=== PATIENT | male | born 1990 | race Caucasian/White ===

== ENCOUNTER 2016-11-22 14:50 | Emergency (ER) | payer OTHER ==
[2016-11-22 15:01] VITALS: O2SAT 99
--- NOTE | 2016-11-22 15:23 | ERPHSYRPT ---
- History of Present Illness Time Seen by Provider: 11/22/16 15:12 Source: patient Exam Limitations: no limitations Patient Subjective Stated Complaint: lower back pain for two days that radiates down right leg. numbness to right leg. hx chronic back pain. Triage Nursing Assessment: ambulated to room per self. skin w/d, color normal. ambulates without difficulty. Physician History: The patient is a 26-year-old male with a history of scoliosis and Zheng rods comes in complaining of increased low back pain on the left with pain shooting down his right leg at times. He has no problems with defecation or urination. He takes hydrocodone 10 mg 4 times a day for his chronic back pain. The hydrocodone is not working. He is locked into a pain clinic. 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 Timing/Duration: day(s) (2) Method of Injury: unknown Quality: aching Back Pain Location: lumbar spine, paraspinous muscles (left) Back Pain Radiation: upper legs (right) Severity of Pain-Max: moderate Severity of Pain-Current: moderate Modifying Factors: Improves With: pain medication Associated Symptoms: denies symptoms Previous symptoms: same symptoms as today, other (chronic) Allergies/Adverse Reactions: No Known Drug Allergies Allergy (Verified 11/22/16 14:58) Home Medications: Hydrocodone/APAP 10/325 mg [[place] 10/325 MG Tablet] 1 tab PO Q4-6HPRN PRN 10/23/16 [History] Hx Tetanus, Diphtheria Vaccination/Date Given: Yes (2015) Hx Influenza Vaccination/Date Given: Yes (2014) Hx Pneumococcal Vaccination/Date Given: No Immunizations Up to Date: Yes - Review of Systems Constitutional: No Fever, No Chills Eyes: No Symptoms Ears, Nose, & Throat: No Symptoms Respiratory: No Cough, No Dyspnea Cardiac: No Chest Pain, No Edema, No Syncope Abdominal/Gastrointestinal: No Abdominal Pain, No Nausea, No Vomiting, No Diarrhea Genitourinary Symptoms: No Dysuria Musculoskeletal: Back Pain Skin: No Rash Neurological: No Dizziness, No Focal Weakness, No Sensory Changes Psychological: No Symptoms Endocrine: No Symptoms Hematologic/Lymphatic: No Symptoms Immunological/Allergic: No Symptoms All Other Systems: Reviewed and Negative - Past Medical History Pertinent Past Medical History: Yes Neurological History: Other ENT History: No Pertinent History Cardiac History: No Pertinent History Respiratory History: No Pertinent History Endocrine Medical History: No Pertinent History Musculoskeletal History: Other GI Medical History: No Pertinent History History: No Pertinent History Psycho-Social History: No Pertinent History Male Reproductive Disorders: No Pertinent History Other Medical History: SCOLIOSIS AND NEUROFIBROMATOSIS. CHRONIC BACK PROBLEMS - Past Surgical History Past Surgical History: Yes Neuro Surgical History: No Pertinent History Cardiac: No Pertinent History Respiratory: No Pertinent History Gastrointestinal: No Pertinent History Genitourinary: No Pertinent History Musculoskeletal: Orthopedic Surgery Male Surgical History: No Pertinent History Other Surgical History: tonsillectomy - finger repair and back surgery- adenoidectomy - Social History Smoking Status: Never smoker Exposure to second hand smoke: Yes Drug Use: none Patient Lives Alone: No - Nursing Vital Signs Temperature: 98.5 F Temperature Source: Oral Pulse Rate: 107 Respiratory Rate: 16 Pain Intensity: 4 - Physical Exam General Appearance: no apparent distress, alert Eye Exam: PERRL/EOMI, eyes nml inspection Ears, Nose, Throat Exam: normal ENT inspection Neck Exam: normal inspection, non-tender, supple, full range of motion, No meningismus, No midline tenderness Respiratory Exam: normal breath sounds, lungs clear, No respiratory distress Cardiovascular Exam: regular rate/rhythm, normal heart sounds Gastrointestinal Exam: soft, No tenderness, No mass Rectal Exam: not done Back Exam: decreased range of motion, muscle spasm (left paraspinous) Extremity Exam: normal inspection, normal range of motion, No calf tenderness, No pedal edema Neurologic Exam: alert, oriented x 3, cooperative, 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 You were given an injection of Toradol 60 mg and Decadron 10 mg IM while in the ER. You were given a prescription for Flexeril 10 mg every 8 hours as needed. Follow-up as needed. Prescriptions: Cyclobenzaprine HCl [Flexeril] 10 mg PO Q8H PRN PRN #10 tablet PRN Reason: Pain
[2016-11-22] MEDS ORDERED: DECADRON 10MG INJ. IM ONE (15:30)
[2016-11-22] MEDS ORDERED: TORAdol 30 mg Injection IM ONE (15:30)
[2016-11-22] MEDS ORDERED: TORAdol 30 mg Injection ONE (15:34)
[2016-11-22] MEDS ORDERED: DECADRON 10MG INJ. ONE (15:34)
[2016-11-22 15:55] VITALS: BP 136/78; PULSE 88
== END 2016-11-22 15:55 | disposition home or self-care (01) ==
LOC: ED 14:50
DX: M54.5 Low back pain (principal); M79.604 Pain in right leg; M41.9 Scoliosis, unspecified; Q85.00 Neurofibromatosis, unspecified
CPT/HCPCS: 96372; 99282; J1100; J1885

== ENCOUNTER 2017-02-01 18:33 | Emergency (ER) | payer OTHER ==
--- NOTE | 2017-02-01 18:44 | ERPHSYRPT ---
- History of Present Illness Time Seen by Provider: 02/01/17 18:39 Source: patient Exam Limitations: no limitations Physician History: The patient is a 26-year-old male who missed a step and twisted his right ankle about 30 minutes ago. He complains of pain. There is some swelling. His past medical history is significant for neurofibromatosis. Method of Injury: twisted Occurred: just prior to arrival Quality: aching Severity of Pain-Max: mild Severity of Pain-Current: mild Lower Extremities Pain: ankle: right Modifying Factors: Improves With: nothing Associated Symptoms: none Allergies/Adverse Reactions: No Known Drug Allergies Allergy (Verified 02/01/17 18:42) Home Medications: No Reportable Medications [No Reported Medications] 02/01/17 [History] Hx Tetanus, Diphtheria Vaccination/Date Given: Yes (2015) Hx Influenza Vaccination/Date Given: Yes (2014) Hx Pneumococcal Vaccination/Date Given: No - Review of Systems Constitutional: No Fever, No Chills Eyes: No Symptoms Ears, Nose, & Throat: No Symptoms Respiratory: No Cough, No Dyspnea Cardiac: No Chest Pain, No Edema, No Syncope Abdominal/Gastrointestinal: No Abdominal Pain, No Nausea, No Vomiting, No Diarrhea Genitourinary Symptoms: No Dysuria Musculoskeletal: Injury, Joint Pain Skin: No Rash Neurological: No Dizziness, No Focal Weakness, No Sensory Changes Psychological: No Symptoms Endocrine: No Symptoms Hematologic/Lymphatic: No Symptoms Immunological/Allergic: No Symptoms All Other Systems: Reviewed and Negative - Past Medical History Pertinent Past Medical History: Yes Neurological History: Other ENT History: No Pertinent History Cardiac History: No Pertinent History Respiratory History: No Pertinent History Endocrine Medical History: No Pertinent History Musculoskeletal History: Other GI Medical History: No Pertinent History History: No Pertinent History Psycho-Social History: No Pertinent History Male Reproductive Disorders: No Pertinent History Other Medical History: SCOLIOSIS AND NEUROFIBROMATOSIS. CHRONIC BACK PROBLEMS - Past Surgical History Past Surgical History: Yes Neuro Surgical History: No Pertinent History Cardiac: No Pertinent History Respiratory: No Pertinent History Gastrointestinal: No Pertinent History Genitourinary: No Pertinent History Musculoskeletal: Orthopedic Surgery Male Surgical History: No Pertinent History Other Surgical History: tonsillectomy - finger repair and back surgery- adenoidectomy - Social History Smoking Status: Never smoker Exposure to second hand smoke: Yes Drug Use: none Patient Lives Alone: No - Nursing Vital Signs Nursing Vital Signs: Initial Vital Signs Temperature 97.5 F Temperature Source Oral Pulse Rate 105 Respiratory Rate 16 Blood Pressure [Right Arm] 151/81 Pain Intensity 5 - Physical Exam General Appearance: alert Eyes, Ears, Nose, Throat Exam: moist mucous membranes Neck Exam: non-tender, supple Cardiovascular/Respiratory Exam: chest non-tender, normal breath sounds, regular rate/rhythm, no respiratory distress Gastrointestinal/Abdominal Exam: non-tender, guarding Back Exam: normal inspection, No vertebral tenderness Hips Exam: bilateral: non-tender Legs Exam: bilateral leg: non-tender Knees Exam: bilateral knee: non-tender Ankle Exam: right ankle: pain, soft tissue tenderness, swelling, left ankle: non -tender, normal inspection Neuro/Tendon Exam: normal sensation, normal motor functions Mental Status Exam: alert, oriented x 3, cooperative Skin Exam: normal color, warm, dry SpO2 Interpretation: normal - Radiology Exams Right Ankle X-ray Interpretation: Interpreted by me, Negative Ordered Tests: Active Orders 24 hr Category Date Time Status ANKLE (3 VIEWS) Stat Exams 02/01/17 18:42 Taken - Progress Progress: unchanged Counseled pt/family regarding: rad results - Departure Time of Disposition: 19:17 Departure Disposition: Home Clinical Impression: Mild sprain of right ankle Condition: Stable Critical Care Time: No Additional Instructions: You have a mild sprain of your right ankle. You were given toradol 60 mg IM in the ER. Take tylenol and ibuprofen as needed. Apply ice as needed.
[2017-02-01] MEDS ORDERED: TORAdol 30 mg Injection IM ONE (19:16)
[2017-02-01] MEDS ORDERED: TORAdol 30 mg Injection ONE (19:18)
[2017-02-01 19:39] VITALS: BP 126/70; PULSE 100; O2SAT 99
--- NOTE | 2017-02-02 17:27 | XRAY ---
Exam: 3 views of the right ankle from 02/01/2017. Comparison: 3 views of the left ankle from 10/25/2010. Indication: Right ankle pain after falling downstairs. Findings: AP, oblique, and lateral images of the right ankle were obtained. I see no acute fracture or dislocation. The right ankle mortise appears unremarkable. There is an incompletely seen oval-shaped soft tissue density overlying the anterior lateral aspect of the right ankle on the AP and lateral radiographs in a superficial location. On the lateral radiograph this is centered about 2 cm proximal to the ankle mortise anteriorly and measures roughly 1.5 cm in greatest diameter. Correlate clinically regarding soft tissue injury in this projection or a skin lesion or a subcutaneous nodule. No other bone or joint abnormality is seen. Impression: 1. No acute fracture or dislocation of the right ankle is seen. 2. Approximately 1.5 cm in diameter, oval-shaped, superficial soft tissue density anterior laterally within the distal right lower leg about 2 cm proximal to the right ankle joint level. See above. Correlate clinically.
== END 2017-02-01 19:39 | disposition home or self-care (01) ==
LOC: ED 18:33
DX: S93.401A Sprain of unspecified ligament of right ankle, initial encounter (principal); W10.9XXA Fall (on) (from) unspecified stairs and steps, initial encounter; X50.0XXA Overexertion from strenuous movement or load, initial encounter; M25.571 Pain in right ankle and joints of right foot
CPT/HCPCS: 73610; 96372; 99284; J1885

== ENCOUNTER 2017-05-31 13:58 | Emergency (ER) | payer OTHER ==
[2017-05-31 14:16] VITALS: BP 135/75
--- NOTE | 2017-05-31 14:34 | ERPHSYRPT ---
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 Triage Nursing Assessment: pt pink, warm, dry. left pinky toe nail bed has laceration. mild swelling noted to toe. Physician History: The patient is a 27-year-old male with his complaining that he was running barefoot, playing with his child, and slipped on the floor, hitting the wall with his left little toe. He was in severe pain. He vomited. This happened 20 minutes ago. He then took Tylenol and ibuprofen. There is some blood at the toenail. His past medical history is unremarkable. Method of Injury: fell Occurred: just prior to arrival Quality: constant, sharpness Severity of Pain-Max: moderate Severity of Pain-Current: moderate Lower Extremities Pain: 5th toe: left Modifying Factors: Improves With: pain medication Associated Symptoms: other (vomited) Allergies/Adverse Reactions: No Known Drug Allergies Allergy (Verified 05/31/17 14:16) Home Medications: No Reportable Medications [No Reported Medications] 02/01/17 [History] Hx Tetanus, Diphtheria Vaccination/Date Given: Yes (up to date) Hx Influenza Vaccination/Date Given: No Hx Pneumococcal Vaccination/Date Given: No Immunizations Up to Date: Yes - Review of Systems Constitutional: No Fever, No Chills Eyes: No Symptoms Ears, Nose, & Throat: No Symptoms Respiratory: No Cough, No Dyspnea Cardiac: No Chest Pain, No Edema, No Syncope Abdominal/Gastrointestinal: Vomiting, No Abdominal Pain, No Nausea, No Diarrhea Genitourinary Symptoms: No Dysuria Musculoskeletal: Fall, Injury Skin: No Rash Neurological: No Dizziness, No Focal Weakness, No Sensory Changes Psychological: No Symptoms Endocrine: No Symptoms Hematologic/Lymphatic: No Symptoms Immunological/Allergic: No Symptoms All Other Systems: Reviewed and Negative - Past Medical History Pertinent Past Medical History: Yes Neurological History: Other ENT History: No Pertinent History Cardiac History: No Pertinent History Respiratory History: No Pertinent History Endocrine Medical History: No Pertinent History Musculoskeletal History: Other GI Medical History: No Pertinent History History: No Pertinent History Psycho-Social History: No Pertinent History Male Reproductive Disorders: No Pertinent History Other Medical History: SCOLIOSIS AND NEUROFIBROMATOSIS. CHRONIC BACK PROBLEMS - Past Surgical History Past Surgical History: Yes Neuro Surgical History: No Pertinent History Cardiac: No Pertinent History Respiratory: No Pertinent History Gastrointestinal: No Pertinent History Genitourinary: No Pertinent History Musculoskeletal: Orthopedic Surgery Male Surgical History: No Pertinent History Other Surgical History: tonsillectomy - finger repair and back surgery- adenoidectomy - Social History Smoking Status: Never smoker Exposure to second hand smoke: No Drug Use: none Patient Lives Alone: No - Nursing Vital Signs Nursing Vital Signs: Initial Vital Signs Temperature 98.0 F 05/31/17 14:11 Pulse Rate 72 05/31/17 14:11 Respiratory Rate 18 05/31/17 14:11 Blood Pressure 135/75 05/31/17 14:11 O2 Sat by Pulse Oximetry 99 05/31/17 14:11 Pain Scale Pain Intensity 6 - Physical Exam General Appearance: alert Eyes, Ears, Nose, Throat Exam: moist mucous membranes Neck Exam: non-tender, supple Cardiovascular/Respiratory Exam: chest non-tender, normal breath sounds, regular rate/rhythm, no respiratory distress Gastrointestinal/Abdominal Exam: non-tender, guarding Back Exam: normal inspection, No vertebral tenderness Hips Exam: bilateral: non-tender, normal inspection Legs Exam: bilateral leg: non-tender, normal inspection Knees Exam: bilateral knee: non-tender, normal inspection Ankle Exam: bilateral ankle: non-tender, normal inspection Foot Exam: left foot: limited range of motion (5th digit), nail injury, pain, soft tissue tenderness Neuro/Tendon Exam: normal sensation, normal motor functions Mental Status Exam: alert, oriented x 3, cooperative Skin Exam: normal color, warm, dry, ecchymosis (mild at base of left 5th toe) SpO2 Interpretation: normal SpO2: 99 Oxygen Delivery: Room Air - Radiology Exams Other X-ray Interpretation: Reviewed by me, Teleradiologist Report, Negative, No Fracture (No fracture of left 5th toe per Dr Jaimes.) Ordered Tests: Active Orders 24 hr Category Date Time Status TOE(S) (MIN 2 VIEWS) Stat Exams 05/31/17 Completed - Progress Progress: improved Counseled pt/family regarding: rad results - Departure Time of Disposition: 15:06 Departure Disposition: Home Clinical Impression: Contusion of left great toe with damage to nail Condition: Stable Critical Care Time: No Additional Instructions: You have a contusion to your left little toe. You do not have any broken bones. Apply ice as needed. Take Tylenol and ibuprofen as needed. Follow-up as needed.
--- NOTE | 2017-05-31 15:03 | XRAY ---
Indication: Pain and bleeding following trauma. Comparison: None AP/lateral left 5th toe obtained. No bony, articular, or soft tissue abnormalities.
[2017-05-31 15:29] VITALS: PULSE 70; O2SAT 97
== END 2017-05-31 15:20 | disposition home or self-care (01) ==
LOC: ED 13:58
DX: S90.222A Contusion of left lesser toe(s) with damage to nail, initial encounter (principal); W22.01XA Walked into wall, initial encounter; Y93.02 Activity, running; Y92.018 Other place in single-family (private) house as the place of occurrence of the external cause
CPT/HCPCS: 73660; 99282; 99283

== ENCOUNTER 2017-08-30 09:07 | Emergency (ER) | payer BC, OTHER ==
[2017-08-30] MEDS ORDERED: Augmentin 875-125 Tablet PO ONE (09:21)
[2017-08-30] MEDS ORDERED: NORCO 5/325 MG PO ONE (09:21)
[2017-08-30] MEDS ORDERED: Adacel Vial IM ONE ×2 (09:24→09:40)
[2017-08-30 09:26] VITALS: BP 154/88
--- NOTE | 2017-08-30 09:35 | ERPHSYRPT ---
- History of Present Illness Time Seen by Provider: 08/30/17 09:16 Source: patient Patient Subjective Stated Complaint: PT REPORTS STUBBING HIS RIGHT GREAT TOE ON HIS COUCH APPROX 4 DAYS AGO, REPORTS HE HAS SHARP PAIN AND SWELLING TO THE R GREAT TOE AND IS UNABLE TO GET HIS SHOE ON TO GO TO WORK. Triage Nursing Assessment: PT IS AOX3, PUPILS PERRL, RESPS EASY AND NON LABORED LUNG SOUNDS ARE CLEAR THROUGHOUT ALL T[place]LIN[place], RADIAL PULSES ARE STRONG AND EQUAL. SKIN IS PINK WARM AND DRY. PT IS AFEBRILE. REDNESS AND SWELLING NOTED TO THE R GREAT TOE. FOOT IS WARM TO TOUCH, CAP REFILL <3 SECONDS. NEUROFIBROMA PRESENT ON THE RIGHT DORSAL FOOT. PEDAL PULSES STRONG AND EQUAL BILAT. Physician History: CC: right great toe injury Hx: 27 y/o patient with no local doctor. Recently obtained insurance from [employer]. He has hx of neurofibromatosis. He stubbed the right great toe on the couch a few days ago. It is now red, painful, swollen, with some drainage at the edges of the nail. No fever or chills. Unsure last tetanus vaccine. No allergies. Pain moderate. Lower Extremities Pain: 1st toe: right Allergies/Adverse Reactions: No Known Drug Allergies Allergy (Verified 08/30/17 09:26) Hx Tetanus, Diphtheria Vaccination/Date Given: No Hx Influenza Vaccination/Date Given: No Hx Pneumococcal Vaccination/Date Given: No Immunizations Up to Date: Yes - Review of Systems Constitutional: No Fever, No Chills Musculoskeletal: Joint Pain (right great toe) - Past Medical History Pertinent Past Medical History: Yes Neurological History: Other ENT History: No Pertinent History Cardiac History: No Pertinent History Respiratory History: No Pertinent History Endocrine Medical History: No Pertinent History Musculoskeletal History: Other GI Medical History: No Pertinent History History: No Pertinent History Psycho-Social History: No Pertinent History Male Reproductive Disorders: No Pertinent History Other Medical History: SCOLIOSIS AND NEUROFIBROMATOSIS. CHRONIC BACK PROBLEMS - Past Surgical History Past Surgical History: Yes Neuro Surgical History: No Pertinent History Cardiac: No Pertinent History Respiratory: No Pertinent History Gastrointestinal: No Pertinent History Genitourinary: No Pertinent History Musculoskeletal: Orthopedic Surgery Male Surgical History: No Pertinent History Other Surgical History: tonsillectomy - finger repair and back surgery- adenoidectomy - Social History Smoking Status: Never smoker Exposure to second hand smoke: No Drug Use: none Patient Lives Alone: No - Nursing Vital Signs Nursing Vital Signs: Initial Vital Signs Temperature 97.8 F 08/30/17 09:18 Pulse Rate 103 H 08/30/17 09:18 Respiratory Rate 18 08/30/17 09:18 Blood Pressure 154/88 08/30/17 09:18 O2 Sat by Pulse Oximetry 99 08/30/17 09:18 Pain Scale Pain Intensity 6 - Physical Exam General Appearance: alert Eyes, Ears, Nose, Throat Exam: moist mucous membranes Neck Exam: normal inspection, non-tender, supple Cardiovascular/Respiratory Exam: normal breath sounds, regular rate/rhythm Gastrointestinal/Abdominal Exam: non-tender, soft Back Exam: normal inspection Neuro/Tendon Exam: normal sensation, normal motor functions Mental Status Exam: alert, oriented x 3, cooperative Skin Exam: warm, dry, other (multiple cafe au lait spots, neurogfibromas) SpO2 Interpretation: normal SpO2: 99 Oxygen Delivery: Room Air Comments: right great toe has granulation tissuse at the nail margins distally bilateral nail margins. There is swelling to the great toe and some tenderness and some mild drainage. - Course Nursing assessment & vital signs reviewed: Yes - Radiology Exams right foot X-ray Interpretation: Teleradiologist Report (new great toe soft tissue swelling without acute fracture) Ordered Tests: Active Orders 24 hr Category Date Time Status Splint STAT Care 08/30/17 09:21 Active Wound Care STAT Care 08/30/17 09:21 Active FOOT (MINIMUM 3 VIEWS) Stat Exams 08/30/17 09:21 Completed Medication Summary Discontinued Medications Generic Name Dose Route Start Last Admin Trade Name Norma PRN Reason Stop Dose Admin Hydrocodone Bitart/Acetaminophen 1 tab 08/30/17 09:21 08/30/17 09:44 [place] 5/325 Mg PO 08/30/17 09:22 1 tab STAT ONE Administration Hydrocodone Bitart/Acetaminophen Confirm 08/30/17 09:39 [place] 5/325 Mg Administered 08/30/17 09:40 Dose 1 tab .ROUTE .STK-MED ONE Amoxicillin/Clavulanate Potassium 875 mg 08/30/17 09:21 08/30/17 09:44 Augmentin 875-125 Tablet PO 08/30/17 09:22 875 mg STAT ONE Administration Amoxicillin/Clavulanate Potassium Confirm 08/30/17 09:39 Augmentin 875-125 Tablet Administered 08/30/17 09:40 Dose 875 mg .ROUTE .STK-MED ONE Diphtheria/Tetanus/Acell Pertussis 0.5 ml 08/30/17 09:24 08/30/17 09:43 Adacel Vial IM 08/30/17 09:25 0.5 ml .ONCE ONE Administration Diphtheria/Tetanus/Acell Pertussis Confirm 08/30/17 09:40 Adacel Vial Administered 08/30/17 09:41 Dose 0.5 ml IM .STK-MED ONE - Progress Progress Note: 08/30/17 10:12 Pt stable. Appointment made to see Dr Alvarez at [facility] WedSeptember 01 at 5:30PM. Counseled pt/family regarding: diagnosis, need for follow-up, rad results - Departure Time of Disposition: 10:13 Departure Disposition: Home Clinical Impression: Paronychia of great toe of right foot Condition: Stable Critical Care Time: No Referrals: REMEDIOS ALVAREZ [PODIATRY STAFF] - Instructions: Paronychia (DC) Additional Instructions: Darco post op shoe. Elevate foot. Rx augmentin. Rx norco. See Dr Alvarez at [facility] September 01 at 5:30PM. Prescriptions: Hydrocodone Bit/Acetaminophen [[place] 5-325 Tablet] 1 each PO Q6H PRN PRN #15 tablet MDD 4 PRN Reason: Pain Amox Tr/Potass Clav. 875 mg [Augmentin 875-125 Tablet] 875 mg PO BID #20 tablet
[2017-08-30] MEDS ORDERED: NORCO 5/325 MG ONE (09:39)
[2017-08-30] MEDS ORDERED: Augmentin 875-125 Tablet ONE (09:39)
--- NOTE | 2017-08-30 09:43 | XRAY ---
Indication: Great toe pain following injury 3-4 days ago. Comparison: January 02, 2016. 3 nonweightbearing views of the right foot demonstrates new great toe soft tissue swelling without acute fracture, dislocation, or suspicious bony lesions. Stable lateral midfoot soft tissue swelling/prominence. Remaining right foot unremarkable.
[2017-08-30 10:44] VITALS: PULSE 72; O2SAT 98
== END 2017-08-30 10:45 | disposition home or self-care (01) ==
LOC: ED 09:07
DX: L03.031 Cellulitis of right toe (principal)
CPT/HCPCS: 73630; 90471; 90715; 99283; A9270-GY

== ENCOUNTER 2017-11-08 08:17 | Emergency (ER) | payer BC ==
--- NOTE | 2017-11-08 09:17 | ERPHSYRPT ---
- History of Present Illness Time Seen by Provider: 11/08/17 09:02 Source: patient Exam Limitations: clinical condition Patient Subjective Stated Complaint: Dental pain, chipped tooth left upper. Triage Nursing Assessment: Pt presents to the ED with complaints of left upper dental pain after chipping tooth this AM. PT states hx of dental complaints. Pt states tylenol and motrin have been taken for pain. No distress noted. Physician History: PATIENT STATE WHILE EATING LAST NIGHT SUSTAINED LEFT UPPER MOLAR FRACTURED TOOTH ASSOCIATED WITH PAIN. DENIES FEVER OR CHILLS, OR DIFFICULTY SWALLOWING. Timing/Duration: abrupt onset Severity: severe ENT Location: dental Prearrival Treatment: no prearrival treatment Modifying Factors: Improves With: other (CHEWING FOOD) Associated Symptoms: jaw pain Allergies/Adverse Reactions: No Known Drug Allergies Allergy (Verified 08/30/17 09:26) Hx Tetanus, Diphtheria Vaccination/Date Given: Yes Hx Influenza Vaccination/Date Given: Yes Hx Pneumococcal Vaccination/Date Given: No Immunizations Up to Date: Yes - Review of Systems Constitutional: No Fever, No Chills Ears, Nose, & Throat: Mouth Pain Respiratory: No Cough, No Dyspnea Cardiac: No Symptoms, No Chest Pain, No Edema, No Syncope Abdominal/Gastrointestinal: No Abdominal Pain, No Nausea, No Vomiting, No Diarrhea - Past Medical History Pertinent Past Medical History: Yes Neurological History: Other ENT History: No Pertinent History Cardiac History: No Pertinent History Respiratory History: No Pertinent History Endocrine Medical History: No Pertinent History Musculoskeletal History: Other GI Medical History: No Pertinent History History: No Pertinent History Psycho-Social History: No Pertinent History Male Reproductive Disorders: No Pertinent History Other Medical History: SCOLIOSIS AND NEUROFIBROMATOSIS. CHRONIC BACK PROBLEMS - Past Surgical History Past Surgical History: Yes Neuro Surgical History: No Pertinent History Cardiac: No Pertinent History Respiratory: No Pertinent History Gastrointestinal: No Pertinent History Genitourinary: No Pertinent History Musculoskeletal: Orthopedic Surgery Male Surgical History: No Pertinent History Other Surgical History: tonsillectomy - finger repair and back surgery- adenoidectomy - Social History Smoking Status: Never smoker Exposure to second hand smoke: Yes Drug Use: none Patient Lives Alone: No - Nursing Vital Signs Nursing Vital Signs: Initial Vital Signs Temperature 98.6 F 11/08/17 08:51 Pulse Rate 81 11/08/17 08:51 Respiratory Rate 16 11/08/17 08:51 Blood Pressure 139/88 11/08/17 08:51 O2 Sat by Pulse Oximetry 100 11/08/17 08:51 Pain Scale Pain Intensity 5 - Physical Exam General Appearance: no apparent distress, alert Eye Exam: bilateral eye: normal inspection, PERRL Ear Exam: bilateral ear: auricle normal, canal normal Nasal Exam: normal inspection Throat Exam: dental tenderness (WIDESPREAD DENTAL CARIES) Cardiovascular/Respiratory Exam: normal breath sounds, regular rate/rhythm Neurologic Exam: alert, oriented x 3, cooperative SpO2 Interpretation: normal SpO2: 100 Oxygen Delivery: Room Air - Progress Counseled pt/family regarding: diagnosis, need for follow-up - Departure Time of Disposition: 09:25 Departure Disposition: Home Clinical Impression: DENTAL CARIES Condition: Stable Critical Care Time: No Additional Instructions: CALL A DENTIST TODAY TO SCHEDULE APPOINTMENT FOR TREATMENT. ANTIBIOTIC AMOXICILLIN 500MG EVERY 8 HOURS FOR 10 DAYS. TORADOL 10MG EVERY 6 HOURS NEEDED FOR DAY. TYLENOL #3 EVERY 4 HOURS FOR SEVERE PAIN. OBTAIN A PRIMARY CARE PROVIDER FOR TREATMENT. Prescriptions: Codeine Phosphate/APAP #3 [Tylenol #3 Tablet] 1 tab PO Q4H PRN PRN #10 tablet PRN Reason: Pain Ketorolac Tromethamine [Toradol] 10 mg PO Q6H PRN PRN #20 tablet PRN Reason: Pain Amoxicillin 500 mg PO TID #30 capsule
[2017-11-08 09:50] VITALS: BP 134/82; PULSE 88; O2SAT 98
== END 2017-11-08 09:52 | disposition home or self-care (01) ==
LOC: ED 08:17
DX: K02.9 Dental caries, unspecified (principal)
CPT/HCPCS: 99282; 99283

== ENCOUNTER 2018-08-30 20:59 | Emergency (ER) | payer BC, MEDICAID ==
--- NOTE | 2018-08-30 21:28 | ERPHSYRPT ---
- History of Present Illness Time Seen by Provider: 08/30/18 21:27 Source: patient Patient Subjective Stated Complaint: Right knee pain Triage Nursing Assessment: Patient ambulated into ED and transferred self to bed. Patient A+O X 3. Patient skin pink, warm and dry. Patient complains of right knee pain 5/10. Patient states he was walking around 1700 and heard a pop to right knee and has had pain ever since. Patient able to bear weight, but hurts to walk and bend knee. No deformities or bruising noted. Physician History: 28 y/o white male with no prior knee problems or surgeries presentes with pain in right knee. pt was walking on stairs and felt a pop. suddenly had pain. took tylenol and pain persisted so came into ED for further management. Method of Injury: twisted Occurred: just prior to arrival Quality: aching Severity of Pain-Max: mild Severity of Pain-Current: mild Lower Extremities Pain: knee: right Modifying Factors: Improves With: movement Associated Symptoms: popping sensation Allergies/Adverse Reactions: No Known Drug Allergies Allergy (Verified 08/30/18 21:09) Hx Tetanus, Diphtheria Vaccination/Date Given: Yes Hx Influenza Vaccination/Date Given: Yes Hx Pneumococcal Vaccination/Date Given: No Immunizations Up to Date: Yes - Review of Systems Constitutional: No Symptoms Eyes: No Symptoms Ears, Nose, & Throat: No Symptoms Respiratory: No Symptoms Cardiac: No Symptoms Abdominal/Gastrointestinal: No Symptoms Genitourinary Symptoms: No Symptoms Musculoskeletal: Joint Pain (right knee) Skin: No Symptoms Neurological: No Symptoms Psychological: No Symptoms Endocrine: No Symptoms Hematologic/Lymphatic: No Symptoms Immunological/Allergic: No Symptoms All Other Systems: Reviewed and Negative - Past Medical History Pertinent Past Medical History: Yes Neurological History: Other ENT History: No Pertinent History Cardiac History: No Pertinent History Respiratory History: No Pertinent History Endocrine Medical History: No Pertinent History Musculoskeletal History: Other GI Medical History: No Pertinent History History: No Pertinent History Psycho-Social History: No Pertinent History Male Reproductive Disorders: No Pertinent History Other Medical History: SCOLIOSIS AND NEUROFIBROMATOSIS. CHRONIC BACK PROBLEMS - Past Surgical History Past Surgical History: Yes Neuro Surgical History: No Pertinent History Cardiac: No Pertinent History Respiratory: No Pertinent History Gastrointestinal: No Pertinent History Genitourinary: No Pertinent History Musculoskeletal: Orthopedic Surgery Male Surgical History: No Pertinent History Other Surgical History: tonsillectomy - finger repair and back surgery- adenoidectomy - Social History Smoking Status: Never smoker Exposure to second hand smoke: Yes Drug Use: none Patient Lives Alone: No - Nursing Vital Signs Nursing Vital Signs: Initial Vital Signs Temperature 97.9 F 08/30/18 21:10 Pulse Rate 80 08/30/18 21:10 Respiratory Rate 18 08/30/18 21:10 Blood Pressure 123/70 08/30/18 21:10 O2 Sat by Pulse Oximetry 100 08/30/18 21:10 Pain Scale Pain Intensity 5 - Physical Exam General Appearance: no apparent distress, alert, anxiety Eyes, Ears, Nose, Throat Exam: normal ENT inspection Neck Exam: normal inspection, non-tender, supple, full range of motion Cardiovascular/Respiratory Exam: chest non-tender, normal breath sounds, regular rate/rhythm, heart sounds normal Gastrointestinal/Abdominal Exam: non-tender, soft, guarding Back Exam: normal inspection, normal range of motion, No CVA tenderness, No vertebral tenderness Hips Exam: bilateral: non-tender, normal inspection, normal range of motion, no evidence of injury Legs Exam: bilateral leg: non-tender, normal inspection, normal range of motion , no evidence of injury Knees Exam: right knee: non-tender, left knee: bone tenderness, soft tissue tenderness, bilateral knee: normal inspection, normal range of motion, no evidence of injury Ankle Exam: bilateral ankle: non-tender, normal inspection, normal range of motion, no evidence of injury Foot Exam: bilateral foot: non-tender, normal inspection, normal range of motion , no evidence of injury Neuro/Tendon Exam: normal sensation, normal motor functions, normal tendon functions Mental Status Exam: alert, oriented x 3, cooperative Skin Exam: normal color, warm, dry SpO2 Interpretation: normal SpO2: 100 O2 Delivery: Room Air - Course Nursing assessment & vital signs reviewed: Yes Ordered Tests: Active Orders 24 hr Category Date Time Status KNEE (3 VIEWS) Stat Exams 08/30/18 21:28 Taken - Progress Progress: unchanged Progress Note: 08/30/18 22:19 xray right knee- no acute fx or dislocation Counseled pt/family regarding: diagnosis, need for follow-up, rad results - Departure Time of Disposition: 22:20 Departure Disposition: Home Clinical Impression: Right knee pain Condition: Stable Critical Care Time: No Additional Instructions: use tylenol and ibuprofen for pain. ice pack to area 3 times daily for 2 days. follow up with primary doctor for further management
[2018-08-30] MEDS ORDERED: NORCO 5/325 MG PO ONE (22:22)
[2018-08-30] MEDS ORDERED: NORCO 5/325 MG ONE (22:25)
[2018-08-30 22:31] VITALS: BP 115/70; PULSE 83; O2SAT 98
--- NOTE | 2018-08-31 09:04 | XRAY ---
Indication: Pain. No known injury. Comparison: None 3 views of the right knee obtained. No bony, articular, or soft tissue abnormalities.
== END 2018-08-30 22:44 | disposition home or self-care (01) ==
LOC: ED 20:59
DX: M25.561 Pain in right knee (principal); M41.9 Scoliosis, unspecified; Q85.00 Neurofibromatosis, unspecified; X50.1XXA Overexertion from prolonged static or awkward postures, initial encounter
CPT/HCPCS: 73562; 99283; A9270-GY

== ENCOUNTER 2019-01-02 13:17 | Emergency (ER) | payer MEDICAID ==
[2019-01-02] MEDS ORDERED: Norco 10/325 MG Tablet PO ONE (13:58)
[2019-01-02] MEDS ORDERED: Norco 10/325 MG Tablet ONE (14:03)
--- NOTE | 2019-01-02 14:05 | ERPHSYRPT ---
- History of Present Illness Time Seen by Provider: 01/02/19 13:35 Source: patient Exam Limitations: clinical condition Patient Subjective Stated Complaint: Pt stated that he was walking down carpeted stairs and tripped on his shoe strings and fell down about 5 steps hurting his right side of the back of neck, rates pain 6/10 Triage Nursing Assessment: Pt walked into the ER with no difficulties, unable to move neck from side to side without severe pain, able to move up and down with some pain, rates pain 6/10, pain with palpatation, no visible markings, vitals wnl, doesn't appear to be in any distress Physician History: PATIENT WITH A HISTORY OF SCOLIOSIS, FELL DOWN STEPS LAST NIGHT, STRUCK RIGHT SIDE OF HEAD, DENIES LOSS OF CONSCIOUSNESS. PATIENT COMPLAINS OF NECK PAIN, DENIES RADIATION OF NECK PAIN DOWN ARMS. Occurred: just prior to arrival Severity: moderate Head Injury Location: temporal Method of Injury: direct blow Loss of Consciousness: no loss of consciousness Associated Symptoms: other (NECK PAIN) Allergies/Adverse Reactions: No Known Drug Allergies Allergy (Verified 01/02/19 13:30) Hx Tetanus, Diphtheria Vaccination/Date Given: Yes Hx Influenza Vaccination/Date Given: Yes Hx Pneumococcal Vaccination/Date Given: No - Review of Systems Constitutional: No Symptoms Eyes: No Symptoms Ears, Nose, & Throat: No Symptoms Respiratory: No Symptoms Cardiac: No Symptoms Musculoskeletal: Neck Pain Neurological: Headache - Past Medical History Pertinent Past Medical History: Yes Neurological History: Other ENT History: No Pertinent History Cardiac History: No Pertinent History Respiratory History: No Pertinent History Endocrine Medical History: No Pertinent History Musculoskeletal History: Other GI Medical History: No Pertinent History History: No Pertinent History Psycho-Social History: No Pertinent History Male Reproductive Disorders: No Pertinent History Other Medical History: SCOLIOSIS AND NEUROFIBROMATOSIS. CHRONIC BACK PROBLEMS - Past Surgical History Past Surgical History: Yes Neuro Surgical History: No Pertinent History Cardiac: No Pertinent History Respiratory: No Pertinent History Gastrointestinal: No Pertinent History Genitourinary: No Pertinent History Musculoskeletal: Orthopedic Surgery Male Surgical History: No Pertinent History Other Surgical History: tonsillectomy - finger repair and back surgery- adenoidectomy - Social History Smoking Status: Never smoker Exposure to second hand smoke: No Drug Use: none Patient Lives Alone: Yes - Nursing Vital Signs Nursing Vital Signs: Initial Vital Signs Temperature 98.4 F 01/02/19 13:21 Pulse Rate 71 06/10/19 13:21 Blood Pressure 133/72 01/02/19 13:21 O2 Sat by Pulse Oximetry 99 01/02/19 13:21 Pain Scale Pain Intensity 6 - Cari Coma Score Best Eye Response ([place]): (4) open spontaneously Best Verbal Response (Cari): (5) oriented Best Motor Response (Cari): (6) obeys commands [place] Total: 15 - Physical Exam General Appearance: no apparent distress, other (APPLICATION OF RIGID CERVICAL COLLAR UPON ARRIVAL) Eye Exam: bilateral eye: normal inspection, PERRL ENT Exam: airway nml Neck Exam: stiff neck, tenderness (RIGHT SIDED TENDERNESS) Cardiovascular/Respiratory Exam: chest non-tender, no ecchymosis Gastrointestinal/Abdominal Exam: soft, non tender Back Exam: normal inspection, normal range of motion Extremity Exam: non-tender, normal range of motion shot polisher Exam: normal hearing, normal speech Coordination/Gait Exam: normal finger to nose, normal gait SpO2: 99 - CT Exams Head CT Interpretation: Discussed w/radiologist, No/Intracranial Hemorrhag Cervical Spine CT Interpretation: Discussed w/radiologist, No Fracture, No Subluxation Ordered Tests: Active Orders 24 hr Category Date Time Status Cervical Collar Application STAT Care 01/02/19 13:54 Active CERVICAL SPINE WO CONTRAST [CT] Stat Exams 01/02/19 13:57 Completed HEAD WITHOUT CONTRAST [CT] Stat Exams 01/02/19 13:56 Completed Medication Summary Discontinued Medications Generic Name Dose Route Start Last Admin Trade Name Norma PRN Reason Stop Dose Admin Hydrocodone Bitart/Acetaminophen 1 tab 01/02/19 13:58 01/02/19 14:24 [place] 10/325 Mg Tablet PO 01/02/19 13:59 1 tab STAT ONE Administration Hydrocodone Bitart/Acetaminophen Confirm 01/02/19 14:03 [place] 10/325 Mg Tablet Administered 01/02/19 14:04 Dose 1 tab .ROUTE .STK-MED ONE - Progress Progress: improved Progress Note: 01/02/19 14:51 [place] 10/325 ORALLY Counseled pt/family regarding: diagnosis, need for follow-up, rad results - Departure Departure Disposition: Home Clinical Impression: SCALP CONTUSION, ACUTE CERVICAL STRAIN Condition: Stable Critical Care Time: No Referrals: NARCISO RICHARD [Primary Care Provider] - Additional Instructions: FOLLOW HEAD INJURY INSTRUCTIONS. [place] 5/325 EVERY 6 HOURS FOR PAIN. CONSULT YOUR PRIMARY CARE PROVIDER FOR FOLLOWUP. Prescriptions: Hydrocodone/APAP 5-325 Tab^^^ [[place] 5-325 Tablet^^^] 1 each PO Q6HPRN PRN #8 tablet MDD 6 PRN Reason: Pain
--- NOTE | 2019-01-02 14:33 | XRAY ---
Indication: Right head injury following fall. Multiple contiguous axial images obtained through the head without contrast. Comparison: None Normal appearing brain parenchyma, ventricles, and bony calvarium. Visualized paranasal sinuses and mastoid air cells are clear. Impression: Normal CT head without contrast exam. CT DI 50.53
--- NOTE | 2019-01-02 14:35 | XRAY ---
Indication: Neck pain. Right head injury following fall. Multiple contiguous axial images obtained through the cervical spine. Sagittal and coronal reformatted images obtained. Comparison: None Axial images negative for acute fracture, suspicious bony lesions, or spinal canal stenosis. Sagittal and coronal reformatted images demonstrates normal alignment with vertebral body heights/disc spaces maintained. No acute compression fracture, subluxation, or jumped facet. Normal appearing craniocervical junction. Visualized noncontrasted soft tissues including lung apices unremarkable. Impression: Normal CT cervical spine. CT DI 46.92
[2019-01-02 14:48] VITALS: BP 138/78; PULSE 64
[2019-01-02 14:54] VITALS: O2SAT 99
== END 2019-01-02 15:00 | disposition home or self-care (01) ==
LOC: ED 13:17
DX: S16.1XXA Strain of muscle, fascia and tendon at neck level, initial encounter (principal); S00.03XA Contusion of scalp, initial encounter; M54.2 Cervicalgia; W10.9XXA Fall (on) (from) unspecified stairs and steps, initial encounter
CPT/HCPCS: 70450; 72125; 99284; L0172; A9270-GY

== ENCOUNTER 2019-04-27 15:29 | Emergency (ER) | payer MEDICAID ==
[2019-04-27] MEDS ORDERED: NORCO 5/325 MG PO ONE (16:57)
[2019-04-27] MEDS ORDERED: NORCO 5/325 MG ONE (17:00)
[2019-04-27 18:04] VITALS: BP 125/76; PULSE 64
[2019-04-27 18:05] VITALS: O2SAT 99
--- NOTE | 2019-04-27 18:05 | ERPHSYRPT ---
- History of Present Illness Time Seen by Provider: 04/27/19 16:00 Source: patient Exam Limitations: no limitations Patient Subjective Stated Complaint: STATES HAS NEUROFIBROMATOSIS AND DEVELOPED A RAISED AREA ON BACK OF HEAD TWO DAYS AGO THAT IS TENDER AND IS CAUSING A HEADACHE. Triage Nursing Assessment: AMBULATED TO ROOM PER SELF. SKIN W/D, COLOR NORMAL, RESP EASY. HAS RAISED AREA ON BACK OF HEAD THE SIZE OF A RAISIN. HAS OTHER RAISED AREAS THAT HE STATES HAVE BEEN THERE AND ARE NOT NEW. Physician History: 28 y/o white male with h/o neurofibromatosis presents with a new tender lesion left occipital scalp. no drainage or redness. denies head injury. Timing/Duration: day(s) (1) Quality: painful Severity: mild Location: scalp Possible Causes: other (neurofibromatosis lesion) Allergies/Adverse Reactions: No Known Drug Allergies Allergy (Verified 04/27/19 15:57) Hx Tetanus, Diphtheria Vaccination/Date Given: No Hx Influenza Vaccination/Date Given: No Hx Pneumococcal Vaccination/Date Given: No - Review of Systems Constitutional: No Symptoms Eyes: No Symptoms Ears, Nose, & Throat: No Symptoms Respiratory: No Symptoms Cardiac: No Symptoms Abdominal/Gastrointestinal: No Symptoms Genitourinary Symptoms: No Symptoms Musculoskeletal: No Symptoms Skin: Skin Lesions (neurofibromatosis) Neurological: No Symptoms Psychological: No Symptoms Endocrine: No Symptoms Hematologic/Lymphatic: No Symptoms Immunological/Allergic: No Symptoms All Other Systems: Reviewed and Negative - Past Medical History Pertinent Past Medical History: Yes Neurological History: Other ENT History: No Pertinent History Cardiac History: No Pertinent History Respiratory History: No Pertinent History Endocrine Medical History: No Pertinent History Musculoskeletal History: Other GI Medical History: No Pertinent History History: No Pertinent History Psycho-Social History: No Pertinent History Male Reproductive Disorders: No Pertinent History Other Medical History: SCOLIOSIS AND NEUROFIBROMATOSIS. CHRONIC BACK PROBLEMS - Past Surgical History Past Surgical History: Yes Neuro Surgical History: No Pertinent History Cardiac: No Pertinent History Respiratory: No Pertinent History Gastrointestinal: No Pertinent History Genitourinary: No Pertinent History Musculoskeletal: Orthopedic Surgery Male Surgical History: No Pertinent History Other Surgical History: tonsillectomy - finger repair and back surgery- adenoidectomy - Social History Smoking Status: Never smoker Exposure to second hand smoke: Yes Drug Use: none Patient Lives Alone: No - Nursing Vital Signs Nursing Vital Signs: Initial Vital Signs Temperature 98.3 F 04/27/19 15:50 Pulse Rate 66 04/27/19 15:50 Respiratory Rate 16 04/27/19 15:50 Blood Pressure 124/73 04/27/19 15:50 O2 Sat by Pulse Oximetry 100 04/27/19 15:50 Pain Scale Pain Intensity 6 - Physical Exam General Appearance: no apparent distress, alert, anxiety Eye Exam: PERRL/EOMI Ears, Nose, Throat Exam: normal ENT inspection, moist mucous membranes Neck Exam: normal inspection, non-tender, supple, full range of motion Respiratory Exam: normal breath sounds, lungs clear, airway intact, No chest tenderness, No respiratory distress Gastrointestinal/Abdomen Exam: No tenderness Rectal Exam: not done Back Exam: normal inspection, normal range of motion, No CVA tenderness, No vertebral tenderness Extremity Exam: normal inspection, normal range of motion, pelvis stable Neurologic Exam: alert, oriented x 3, cooperative, facility coordinator II-XII nml as tested, normal mood/affect, nml cerebellar function, nml station & gait Skin Exam: other (tender single neurofibromatosis lesion in area of tenderness. no cellulitis, no abscess) Lymphatic Exam: No adenopathy SpO2 Interpretation: normal SpO2: 99 O2 Delivery: Room Air - Course Nursing assessment & vital signs reviewed: Yes Ordered Tests: Medication Summary Discontinued Medications Generic Name Dose Route Start Last Admin Trade Name Nicholasq PRN Reason Stop Dose Admin Hydrocodone Bitart/Acetaminophen 1 tab 04/27/19 16:57 04/27/19 17:01 [place] 5/325 Mg PO 04/27/19 16:58 1 tab STAT ONE Administration Hydrocodone Bitart/Acetaminophen Confirm 04/27/19 17:00 [place] 5/325 Mg Administered 04/27/19 17:01 Dose 1 tab .ROUTE .STK-MED ONE - Progress Progress: improved Counseled pt/family regarding: diagnosis, need for follow-up - Departure Departure Disposition: Home Clinical Impression: Skin lesion of scalp Condition: Stable Critical Care Time: No Referrals: NARCISO RICHARD [Primary Care Provider] - Additional Instructions: ice pack to area 3 times daily. avoid pressure to this area. add ibuprofen and tylenol for pain. follow up with primary doctor for further management Prescriptions: Tramadol HCl 50 mg [Ultram 50 mg] 50 mg PO TID PRN #9 tablet PRN Reason: Mild To Moderate Pain
== END 2019-04-27 18:16 | disposition home or self-care (01) ==
LOC: ED 15:29
DX: L98.9 Disorder of the skin and subcutaneous tissue, unspecified (principal); Q85.00 Neurofibromatosis, unspecified
CPT/HCPCS: 99283; A9270-GY

== ENCOUNTER 2019-07-25 12:50 | Emergency (ER) | payer MEDICAID ==
[2019-07-25 13:14] VITALS: PULSE 113; O2SAT 100
--- NOTE | 2019-07-25 13:19 | ERPHSYRPT ---
- History of Present Illness Time Seen by Provider: 07/25/19 13:19 Source: patient Exam Limitations: no limitations Patient Subjective Stated Complaint: INFECTION POCKET IN GUM ON RIGHT SIDE POPPED OPEN AT 1330 YESTERDAY, RELEASING PUSS WITH PAIN AND NAUSEA TO FOLLOW. UNSURE IF UPPER OR LOWER GUM. VOMITING X 1 YESTERDAY, NAUSEA UNABLE TO KEEP DOWN FOOD SINCE, ABLE TO DRINK LIQUIDS. Triage Nursing Assessment: ALERT AND ORIENTED, ABLE TO AMBULATE TO ROOM. RIGHT SIDE OF JAW MILD EDEMA. ABLE TO TALK WITHOUT DIFFICULTY. Physician History: INFECTION POCKET IN GUM ON RIGHT SIDE POPPED OPEN AT 1330 YESTERDAY, RELEASING PUSS WITH PAIN AND NAUSEA , VOMITING X 1 YESTERDAY, NAUSEA UNABLE TO KEEP DOWN FOOD SINCE, ABLE TO DRINK LIQUIDS. [ End ] Timing/Duration: gradual onset Severity: severe ENT Location: ear (R), mouth, throat, dental Prearrival Treatment: over the counter meds Associated Symptoms: ear pain (R), chills, facial pain/swelling, jaw pain, poor solids intake, tooth pain Allergies/Adverse Reactions: No Known Drug Allergies Allergy (Verified 04/27/19 15:57) Hx Tetanus, Diphtheria Vaccination/Date Given: Yes Hx Influenza Vaccination/Date Given: No Hx Pneumococcal Vaccination/Date Given: No - Review of Systems Constitutional: No Fever, No Chills Eyes: No Symptoms Ears, Nose, & Throat: No Symptoms, Other (right lower dental pain with tenderness the, missing multiple teeth.) Respiratory: No Cough, No Dyspnea Cardiac: No Chest Pain, No Edema, No Syncope Abdominal/Gastrointestinal: No Abdominal Pain, No Nausea, No Vomiting, No Diarrhea Genitourinary Symptoms: No Dysuria Musculoskeletal: No Back Pain, No Neck Pain Skin: No Rash Neurological: No Dizziness, No Focal Weakness, No Sensory Changes Psychological: No Symptoms Endocrine: No Symptoms All Other Systems: Reviewed and Negative - Past Medical History Pertinent Past Medical History: Yes Neurological History: Other ENT History: No Pertinent History Cardiac History: No Pertinent History Respiratory History: No Pertinent History Endocrine Medical History: No Pertinent History Musculoskeletal History: Other GI Medical History: No Pertinent History History: No Pertinent History Psycho-Social History: No Pertinent History Male Reproductive Disorders: No Pertinent History Other Medical History: SCOLIOSIS AND NEUROFIBROMATOSIS. CHRONIC BACK PROBLEMS - Past Surgical History Past Surgical History: Yes Neuro Surgical History: No Pertinent History Cardiac: No Pertinent History Respiratory: No Pertinent History Gastrointestinal: No Pertinent History Genitourinary: No Pertinent History Musculoskeletal: Orthopedic Surgery Male Surgical History: No Pertinent History Other Surgical History: tonsillectomy and adenoids, finger repair and back surgery- - Social History Smoking Status: Never smoker Exposure to second hand smoke: Yes Drug Use: none Patient Lives Alone: Yes - Nursing Vital Signs Nursing Vital Signs: Initial Vital Signs Pulse Rate 113 H 07/25/19 13:13 Respiratory Rate 18 07/25/19 13:13 Blood Pressure 136/95 07/25/19 13:13 O2 Sat by Pulse Oximetry 100 07/25/19 13:13 Pain Scale Pain Intensity 4 - Physical Exam General Appearance: no apparent distress, alert Eye Exam: bilateral eye: PERRL, EOMI Nasal Exam: normal inspection Throat Exam: pharynx normal, dental tenderness (right lower dental pain with tenderness the, missing multiple teeth.), moist mucus membranes, No pharynx tenderness, No tonsillar exudate Neck Exam: supple Cardiovascular/Respiratory Exam: normal breath sounds, regular rate/rhythm Abdominal Exam: non-tender, soft Neurologic Exam: alert, oriented x 3, sensation nml, No motor deficits Skin Exam: normal color, warm, dry SpO2: 100 - Course Nursing assessment & vital signs reviewed: Yes - Progress Progress: unchanged Progress Note: 07/25/19 13:24 advised patient to see dentist as soon as possible. Counseled pt/family regarding: diagnosis, need for follow-up - Departure Departure Disposition: Home Clinical Impression: Pain, dental Condition: Stable Critical Care Time: No Referrals: NARCISO RICHARD [Primary Care Provider] - 07/26/19 Instructions: Tooth Abscess (DC), Dental Pain (DC) Prescriptions: Naproxen 500 mg [Naprosyn 500 MG] 500 mg PO BIDPRN PRN #10 tablet PRN Reason: Pain Penicillin V Potassium 500 mg PO BID 7 Days #14 tablet
[2019-07-25] MEDS ORDERED: AMOXIL 500 MG ONE (13:45)
[2019-07-25] MEDS ORDERED: NORCO 5/325 MG ONE (13:45)
[2019-07-25] MEDS ORDERED: TORAdol 30 mg Injection ONE (13:45)
[2019-07-25] MEDS: TORAdol 30 mg Injection IM ONE (13:50)
[2019-07-25] MEDS: NORCO 5/325 MG PO ONE (13:51)
[2019-07-25] MEDS: AMOXIL 500 MG PO ONE (13:51)
[2019-07-25 14:04] VITALS: BP 132/89
== END 2019-07-25 14:04 ==
LOC: ED 12:50
DX: K08.89 Other specified disorders of teeth and supporting structures (principal)
CPT/HCPCS: 96372; 99283; J1885; A9270-GY